=== PATIENT | male | born 1990 | race Caucasian/White ===

== ENCOUNTER 2017-02-18 14:32 | Emergency (ER) | payer BC, OTHER ==
[~2017-02-18] VITALS: Ht 195.6 cm; Wt 87.0 kg
[2017-02-18 14:33] VITALS: BP 123/78
[2017-02-18] MEDS ORDERED: MAALOX/HYOSCYAMINE/LIDOCAINE 45 ML BOTTLE PO ONE (15:30)
[2017-02-18] MEDS ORDERED: MAALOX/HYOSCYAMINE/LIDOCAINE 45 ML BOTTLE ONE (15:41)
[2017-02-18 15:49] LABS: BLOOD UREA NITROGEN 16 mg/dL (7-18)
[2017-02-18 15:52] LABS: ASPARTATE AMINO TRANSFERASE 14 U/L (15-37)
[2017-02-19] MEDS ORDERED: ALBU2.5V NEB (02:03)
== END 2017-02-18 17:26 | disposition home or self-care (01) ==
LOC: ED 16:38
DX: K29.00 Acute gastritis without bleeding (principal); R10.13 Epigastric pain; J45.909 Unspecified asthma, uncomplicated
CPT/HCPCS: 36415; 76700; 80053; 83690; 85025; 99285

== ENCOUNTER 2017-02-19 01:28 | Inpatient (IN) | payer OTHER ==
[~2017-02-19] VITALS: Ht 195.6 cm; Wt 89.1 kg
[2017-02-19] MEDS ORDERED: ALBU2.5V NEB (02:03)
[2017-02-19] MEDS ORDERED: MORPHINE SULFATE 4 MG/ML, 1ML ONE (02:26)
[2017-02-19] MEDS ORDERED: ONDANSETRON 2MG/ML, 2ML ONE ×2 (02:26→09:08)
[2017-02-19] MEDS ORDERED: FAMOTIDINE 20 MG/2 ML ONE (02:26)
[2017-02-19] MEDS ORDERED: ONDANSETRON 2MG/ML, 2ML IVPush ONE (02:30)
[2017-02-19] MEDS ORDERED: MORPHINE SULFATE 4 MG/ML, 1ML IVPush PRN (02:30)
[2017-02-19] MEDS ORDERED: FAMOTIDINE 20 MG/2 ML IVP ONE (02:30)
[2017-02-19 02:43] LABS: ASPARTATE AMINO TRANSFERASE 9 U/L (15-37); BLOOD UREA NITROGEN 14 mg/dL (7-18)
[2017-02-19] MEDS ORDERED: OMNIPAQUE 350 MG/ML, 100ML BOTTLE ONE (03:36)
[2017-02-19] MEDS ORDERED: POTASSIUM CHLORIDE 20 MEQ in D5%-0.45% NACL 1,000 ML IV ONE (04:11)
[2017-02-19] MEDS ORDERED: ONDANSETRON 2MG/ML, 2ML IVPush PRN ×2 (04:30→09:30)
[2017-02-19] MEDS ORDERED: CEFOTETAN PMX 2GM/50ML 50 ML IV ONE (04:30)
[2017-02-19] MEDS ORDERED: PIPERACILLIN/TAZO/PMX 4.5GM 100 ML IV ONE (04:30)
[2017-02-19] MEDS ORDERED: HYDROmorphone 1 MG/ML, 1ML IVPush PRN (04:30)
[2017-02-19] MEDS ORDERED: HYDROmorphone 1 MG/ML, 1ML ONE (04:41)
[2017-02-19 06:13] VITALS: BP 119/75
[2017-02-19 08:00] VITALS: BP 129/82
[2017-02-19] MEDS ORDERED: BUPIVACAINE/PF 0.5% ONE (08:10)
[2017-02-19] MEDS ORDERED: MIDAZOLAM 1 MG/ML, 2ML ONE (09:07)
[2017-02-19] MEDS ORDERED: FENTANYL PF 100 MCG/2ML ONE (09:07)
[2017-02-19] MEDS ORDERED: ROCURONIUM 10 MG/ML ONE (09:08)
[2017-02-19] MEDS ORDERED: NEOSTIGMINE 1 MG/ML, 10ML ONE (09:08)
[2017-02-19] MEDS ORDERED: PROPOFOL 10 MG/ML, 20ML ONE (09:08)
[2017-02-19] MEDS ORDERED: SUCCINYLCHOLINE 20 MG/ML, 10ML ONE (09:08)
[2017-02-19] MEDS ORDERED: GLYCOPYRROLATE 0.2MG/1ML ONE (09:08)
[2017-02-19] MEDS ORDERED: FENTANYL PF 100 MCG/2ML IV PRN (09:30)
[2017-02-19] MEDS ORDERED: OXYcodone 5 MG/5 ML ORAL.SOL UDC PO PRN ×2 (09:30→12:00)
[2017-02-19] MEDS ORDERED: EPHEDRINE 50 MG/ML, 1ML IVPush PRN (09:30)
[2017-02-19] MEDS ORDERED: ACETAMINOPHEN 325 MG TABLET PO PRN (09:30)
[2017-02-19] MEDS ORDERED: hydrALAzine 20 MG/ML, 1ML IV PRN (09:30)
[2017-02-19] MEDS ORDERED: LABETALOL 5MG/ML, 20ML IV PRN (09:30)
[2017-02-19] MEDS ORDERED: METOPROLOL 1 MG/ML, 5ML IV PRN (09:30)
[2017-02-19] MEDS ORDERED: HYDROmorphone 1 MG/ML, 1ML IV PRN (09:30)
[2017-02-19] MEDS ORDERED: MEPERIDINE/PF 25MG/0.5ML IVPush PRN (09:30)
[2017-02-19] MEDS ORDERED: ALBUTEROL SULFATE 2.5 MG/3 ML NPPB PRN (09:30)
[2017-02-19] MEDS ORDERED: OXYcodone 5 MG/5 ML ORAL.SOL UDC ONE (10:26)
[2017-02-19] MEDS ORDERED: ACETAMINOPHEN 650 MG/20.3 ML UDC ONE (10:26)
[2017-02-19] MEDS ORDERED: LORazepam 1MG TABLET PO PRN (12:00)
[2017-02-19] MEDS ORDERED: DIPHENHYDRAMINE 50 MG/ML, 1ML IV PRN (12:00)
[2017-02-19] MEDS ORDERED: ONDANSETRON 2MG/ML, 2ML IV PRN (12:00)
[2017-02-19] MEDS ORDERED: DIPHENHYDRAMINE 25 MG CAPSULE PO PRN (12:00)
[2017-02-19] MEDS ORDERED: KETOROLAC 30 MG/1 ML IV PRN (12:00)
[2017-02-19] MEDS ORDERED: LORazepam 2 MG/ML, 1ML IV PRN (12:00)
[2017-02-19] MEDS: POTASSIUM CHLORIDE 20 MEQ in D5%-0.45% NACL 1,000 ML IV SCH (12:09)
[2017-02-19] MEDS: PIPERACILLIN/TAZO/PMX 3.375GM 50 ML IV SCH ×2 (12:09→21:28)
[2017-02-19 13:02] VITALS: BP 126/76
[2017-02-19] MEDS: ACETAMINOPHEN 500 MG TABLET PO SCH ×2 (16:49→23:06)
[2017-02-19 18:58] VITALS: BP 117/69
[2017-02-19 23:35] VITALS: BP 108/67
[2017-02-20 03:49] VITALS: BP 101/62
[2017-02-20] MEDS: POTASSIUM CHLORIDE 20 MEQ in D5%-0.45% NACL 1,000 ML IV SCH ×2 (03:53→17:28)
[2017-02-20] MEDS: ACETAMINOPHEN 500 MG TABLET PO SCH ×4 (03:54→23:25)
[2017-02-20] MEDS: PIPERACILLIN/TAZO/PMX 3.375GM 50 ML IV SCH ×3 (03:54→21:15)
[2017-02-20] MEDS: ENOXAPARIN 40 MG/0.4 ML SQ SCH (05:34)
[2017-02-20 07:13] VITALS: BP 104/64
[2017-02-20 08:34] LABS: BLOOD UREA NITROGEN 7 mg/dL (7-18)
[2017-02-20 14:29] VITALS: BP 100/61
[2017-02-20 20:03] VITALS: BP 109/67
[2017-02-20 23:18] VITALS: BP 119/68
[2017-02-21] MEDS: ENOXAPARIN 40 MG/0.4 ML SQ SCH ×2 (06:00→06:03)
[2017-02-21] MEDS: PIPERACILLIN/TAZO/PMX 3.375GM 50 ML IV SCH ×2 (06:03→14:04)
[2017-02-21] MEDS: POTASSIUM CHLORIDE 20 MEQ in D5%-0.45% NACL 1,000 ML IV SCH (06:03)
[2017-02-21] MEDS: ACETAMINOPHEN 500 MG TABLET PO SCH ×2 (06:03→12:50)
[2017-02-21 07:50] VITALS: BP 119/74
[2017-02-21 09:17] LABS: BLOOD UREA NITROGEN 7 mg/dL (7-18)
[2017-02-21 15:00] VITALS: BP 124/84
[2017-02-21] MEDS ORDERED: OXYC-302 PO (17:22)
== END 2017-02-21 17:34 | disposition home or self-care (01) | DRG 343 ==
LOC: ED 01:43 → EDIP 04:11 → 4NOR 06:11
PROVIDERS: ADMIT Surgery; ATTEND Surgery
PROC: 0DTJ4ZZ Resection of Appendix, Percutaneous Endoscopic Approach (ICD-10-PCS; principal; 2017-02-19 09:00)
DX: K35.80 Unspecified acute appendicitis (principal); J45.909 Unspecified asthma, uncomplicated; Z79.51 Long term (current) use of inhaled steroids
CPT/HCPCS: 36415; 74177; 80048; 80053; 82040; 83690; 85025; 86677; 88304; 93005; 96374; 96375; J1170; J1650; J2250; J2405; J2543; J2704; J2710; J3010; J3480; J3490; Q9967; J0330; S0028